=== PATIENT | male | born 1950 ===

== ENCOUNTER 2017-10-18 08:45 | Inpatient (IN) | payer OTHER ==
[~2017-10-18] VITALS: Ht 172.7 cm; Wt 72.1 kg
[~2017-10-18 08:45] MED LIST: LOPERAMIDE2 MG PO; LOSARTAN POTAS100 MG PO; MIRALAX12 EA PO; Mylicon 125MG PO; QUESTRAN PACKET4 GM PO
[2017-10-18] MEDS ORDERED: PREVACID15 MG PO (12:06)
[2017-10-18] MEDS ORDERED: THERALITH XR T1 EACH PO (12:06)
== END 2017-10-29 17:33 | DRG 330 ==
LOC: EDSTATUS 08:45 → ADM 08:45 → O/R 10-26 05:40 → SURH 10-26 05:40
PROVIDERS: Surgery
PROC: 0D7N8ZZ Dilation of Sigmoid Colon, Via Natural or Artificial Opening Endoscopic (ICD-10-PCS; 2017-10-26)
PROC: 0DQB4ZZ Repair Ileum, Percutaneous Endoscopic Approach (ICD-10-PCS; principal; 2017-10-26 07:00)
DX: C20 Malignant neoplasm of rectum (principal); K91.89 Other postprocedural complications and disorders of digestive system; K56.0 Paralytic ileus; Z43.2 Encounter for attention to ileostomy; N40.0 Benign prostatic hyperplasia without lower urinary tract symptoms; I11.9 Hypertensive heart disease without heart failure